=== PATIENT | female | born 1965 | race Native Hawaiian/Other Pacific Islander ===

== ENCOUNTER 2018-03-16 16:51 | Emergency (ER) | payer OTHER ==
[2018-03-16 17:01] VITALS: BP 171/95
--- NOTE | 2018-03-16 18:04 | Emergency Department Report ---
ED General Adult HPI - General Chief complaint: Upper Respiratory Infection Stated complaint: MUSCULAR BODY PAIN Time Seen by Provider: 03/16/18 17:50 Source: patient, family Mode of arrival: Ambulatory Limitations: Language Barrier - History of Present Illness Initial comments: Patient is a 52-year-old [place] female who is presenting headache and body aches and some weakness. Patient was diagnosed with sinus infection and sore throat 3 days ago. Patient is on her third day of Z-Alex. Patient states her ears throat is still sore and she just doesn't feel well. Severity scale (0 -10): 6 Consistency: constant Improves with: none - Related Data Previous Rx's Medication Instructions Recorded Last Taken Type HYDROcodone/APAP 5-325 [[place] 1 each PO Q6HR PRN #15 tablet 03/16/18 Unknown Rx 5/325] predniSONE [Deltasone] 20 mg PO QDAY #5 tab 03/16/18 Unknown Rx Allergies Allergy/AdvReac Type Severity Reaction Status Date / Time No Known Allergies Allergy Unverified 03/16/18 17:01 ED Review of Systems ROS: Stated complaint: MUSCULAR BODY PAIN Other details as noted in HPI Comment: All other systems reviewed and negative ED Past Medical Hx - Past Medical History Previous Medical History?: No - Social History Smoking Status: Never Smoker Substance Use Type: Alcohol - Medications Home Medications: Home Medications Medication Instructions Recorded Confirmed Last Taken Type HYDROcodone/APAP 5-325 [[place] 1 each PO Q6HR PRN #15 tablet 03/16/18 Unknown Rx 5/325] predniSONE [Deltasone] 20 mg PO QDAY #5 tab 03/16/18 Unknown Rx ED Physical Exam - General Limitations: Language Barrier General appearance: alert, in no apparent distress - Head Head exam: Present: atraumatic, normocephalic - Eye Eye exam: Present: normal appearance - ENT ENT exam: Present: mucous membranes moist, other (and has bilateral pharyngeal erythema without exudate.) - Neck Neck exam: Present: normal inspection - Respiratory Respiratory exam: Present: normal lung sounds bilaterally. Absent: respiratory distress, wheezes, rales, rhonchi - Cardiovascular Cardiovascular Exam: Present: regular rate, normal rhythm. Absent: systolic murmur, diastolic murmur, rubs, gallop - GI/Abdominal GI/Abdominal exam: Present: soft, normal bowel sounds - Extremities Exam Extremities exam: Present: normal inspection - Back Exam Back exam: Present: normal inspection - Neurological Exam Neurological exam: Present: alert, oriented X3 - Psychiatric Psychiatric exam: Present: normal affect, normal mood - Skin Skin exam: Present: warm, dry, intact, normal color. Absent: rash ED Course Vital Signs 03/16/18 16:56 Temperature 98.8 F Pulse Rate 102 H Respiratory 18 Rate Blood Pressure 171/95 O2 Sat by Pulse 96 Oximetry ED Medical Decision Making - Medical Decision Making Patient will be given pain meds for symptomatic relief as well as will be started on steroids. Critical care attestation.: If time is entered above; I have spent that time in minutes in the direct care of this critically ill patient, excluding procedure time. ED Disposition Clinical Impression: Pharyngitis Qualifiers: Pharyngitis/tonsillitis etiology: unspecified etiology Qualified Code(s): J02.9 - Acute pharyngitis, unspecified Upper respiratory infection Qualifiers: URI type: unspecified URI Qualified Code(s): J06.9 - Acute upper respiratory infection, unspecified Disposition: - TO HOME OR SELFCARE Is pt being admited?: No Does the pt Need Aspirin: No Condition: Stable Referrals: HANH ATKINSON MD [Primary Care Provider] - 3-5 Days
== END 2018-03-16 18:20 | disposition home or self-care (01) ==
LOC: ED 16:51
DX: J02.9 Acute pharyngitis, unspecified (principal); J06.9 Acute upper respiratory infection, unspecified
CPT/HCPCS: 99282